=== PATIENT | male | born 1950 | race Caucasian/White ===

== ENCOUNTER 2018-11-27 11:38 | Observation (INO) ==
[2018-11-27] MEDS ORDERED: Isovue-370 500 ML BOTTLE IVP ONE (11:44)
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
[2018-11-27 12:20] LABS: Hematocrit 38.5 % (37.5-50.1); Hemoglobin 12.3 g/dL (12.9-16.9); Mean Corpuscular HGB Conc 31.9 g/dL (31.6-35.5); Mean Corpuscular Hemoglobin 27.5 pg (28.0-33.3); Mean Corpuscular Volume 86.1 fL (83.0-100.0); Mean Platelet Volume 10.4 fL (9.4-12.4); Platelet Count 250 K/mcL (140-400); Red Blood Count 4.47 M/mcL (4.19-5.50); Red Cell Distribution Width 15.4 % (11.5-14.5)
[2018-11-27 12:25] LABS: INR 1.2; Prothrombin Time 13.7 Seconds (9.4-12.1)
[2018-11-27 12:28] LABS: Activated Partial Thrombo Time 33.3 Seconds (26.0-36.0)
[2018-11-27 12:42] LABS: BUN/Creatinine Ratio 11 (6-26); Blood Urea Nitrogen 9 mg/dL (8-23); Calcium 9.3 mg/dL (8.6-10.3); Carbon Dioxide 28 mEq/L (23-29); Chloride 101 mEq/L (98-107); Glucose 216 mg/dL (70-105); Osmolality,Calculated 281 (280-300); Potassium 4.1 mEq/L (3.5-5.1); Sodium 133 mEq/L (136-145); eGFR For Non-African Americans > 60 (> 60)
[2018-11-27 12:43] LABS: Troponin I < 0.03 ng/mL (< 0.04)
[2018-11-27] MEDS ORDERED: Aspirin 81 MG TAB.CHEW PO ONE (13:15)
--- NOTE | 2018-11-27 15:46 | Internal Med History&Physical ---
Date of Encounter: 11/27/18 Time of Encounter: 15:22 Internal Medicine - H&P: HPI Chief complaint: left facial droop Admitted From: Long-term Nursing Facility Plans for Post Hospital Care: Transfer Half-Way Facility History of present illness: Mr. Chan is a 68 year old male who has history of right MCA stroke, diabetes, BPH, smoker, and dementia with behavioral issues, lives in the [place] extended the facility, was brought to emergency room for left facial droop. Patient had right MCA stroke with left-sided spasmatic hemiplegia, this morning patient was in the store in his wheelchair, he said he turned around too fast, and hit his right wrist, and his head. He was found significant left facial droop. He was sent to emergency room, stroke alert was called, he had a negative CT scan,Tele stroke consult was called. Patient is not a candidate for TPA. he is going to be admitted for TIA workup. when I saw the patient, he is alert and oriented 3, he admits he smokes 18 cigarettes daily. He denies alcohol use, denies LOC, no vision changes. His daughter is on the bedside. He has some behavioral issues. Patient denies chest pain, shortness of breath, denies nausea vomiting diarrhea he denies painful frequency urination. I called [facility] Medication list is obtained Lyrica 75 mg twice a day Metformin 500 mg twice a day Potassium chloride 10 mEq once daily Docusate 2 tablets twice a day Insulin she 10 units once daily Quetapine 25 mg twice daily Omeprazole 20 mg daily Baby aspirin 81 mg daily Percocets 5 325 3 times a day as needed Balofen 10 mg 3 times a day carbamzepine 200 mg BID Trazodone 50 mg at sleep time, Flomax 0.4 mg at sleep time, LIpitor 40 mg at sleep time Past Med Surg Social Fam HX - Past Medical History Medical history: CVA, diabetes Additional medical history: cva-2014 with left arm deficiets and unable to walk Psychiatric history: other - Past Surgical History Surgical History: no surgical history, herniorrhaphy - Social History Smoking Status: Current every day smoker Smokeless Tobacco Status: No Alcohol use: unknown, heavy Drug use: none Current living situation: [facility] Activity Level: Bed bound - Family History Father Hx Family Cancer: Yes (leukemia) - Additional Family History Additional family history: denies CAD, DM, positive for leukemia Internal Medicine - H&P: Meds cephALEXin [Cephalexin] 500 mg PO QID #40 tablet 07/21/16 [Rx] Baclofen [Lioresal] 10 mg PO TID 11/27/18 [History] Pregabalin [Lyrica] 75 mg PO BID 11/27/18 [History] Quetiapine Fumarate [SEROquel] 25 mg PO BID 11/27/18 [History] carBAMazepine [CarBAMazepine] 200 mg PO BID 11/27/18 [History] Allergy/AdvReac Type Severity Reaction Status Date / Time No Known Allergies Allergy Verified 07/21/16 14:10 All Systems PM: A 10-system review of systems was performed and is negative for pertinent findings except as documented above in the HPI. - Constitutional Vitals: Temp Pulse Resp BP Pulse Ox 99.0 F 69 16 131/56 97 11/27/18 11:43 11/27/18 13:54 11/27/18 13:54 11/27/18 13:54 11/27/18 13:54 General appearance: Present: A&O X 3, obese Exam: CONSTITUTIONAL: Patient appears as an age appropriate male well developed, in no acute distress. EYES Clear sclerae, bilateral pupils are equal, reactive to light and accommodation. Extraocular movements are intact RESPIRATORY: No accessory muscle use, bilateral clear to auscultation, no wheezing, no crackles/rales. CARDIOVASCULAR: Regular heart rate, normal S1 and S2, no murmurs GASTROINTESTINAL: bowel sounds present, soft, no tenderness. No hepatosplenomegaly. No bilateral CVA tenderness MUSCULOSKELETAL: right sided Joints in normal range of motion, no clubbing, no edema, no cyanosis. left side hemiplegia LYMPHATIC no lymphadenopathy in neck, groin and axilla bilaterally, no thyromegaly. NEUROLOGIC: CN II to XII are grossly intact, no focal neurological deficit. left hemiplegia PSYCHIATRIC: Oriented x3, with good insight, mood is euthymic. No hallucinations or delusions. SKIN: Skin warm and dry, no rashes, no open wound. Internal Med - H&P Results - Labs CBC & Chem 7: 11/27/18 12:05 11/27/18 12:05 Labs: Short CBC 11/27/18 Range/Units 12:05 WBC 7.0 (4.3-11.1) K/mcL Hgb 12.3 L (12.9-16.9) g/dL Hct 38.5 (37.5-50.1) % Plt Count 250 (140-400) K/mcL BMP 11/27/18 12:05 Sodium 133 L Potassium 4.1 Chloride 101 Carbon Dioxide 28 BUN 9 Creatinine 0.81 Glucose 216 H Calcium 9.3 Cardiac Enzymes 11/27/18 Range/Units 12:05 Troponin I < 0.03 (< 0.04) ng/mL - Impressions ITS Impressions Head CT 11/27/18 11:44 IMPRESSION: 1. No acute intracranial abnormality. 2. Chronic infarcts involving the right anterior and middle cerebral artery distributions. 3. Cerebral parenchymal volume loss with chronic microvascular white matter ischemic disease. 4. Large cystic mass along the posterior midline of the neck, incompletely imaged, however, relatively stable compared to the 10/05/2017 exam. D/ : / 11/27/2018 12:19:03 Christian Del Toro [place] [facility] [place] Provider: Christian Del Toro MD Wrist X-Ray 11/27/18 12:12 IMPRESSION: 1. Technically limited secondary to patient immobility. 2. No acute osseous abnormality. D/ /27/2018 12:58:31 Cathy Borja MD / chelita Interpreting Provider: Cathy Borja MD - Assessment and plan (1) Facial droop Current Visit: Yes Status: Acute Assessment and plan: Transient left facial droop and possible TIA we will do TIA workup obtain MRI of brain echocardiogram carotid duplex Consult a neurologist Check a lipid A1c TSH, conuslt PT, OT and SP Continue baby aspirin and the statins discussed with neurology, he recommended plavix and ASA, MRI brain (2) Hx of ischemic right MCA stroke Current Visit: Yes Status: Acute Assessment and plan: With left-sided spasmatic hemiplegia Continue aspirin and statins (3) Tobacco dependence Current Visit: Yes Status: Acute Assessment and plan: Smokeless 16 cigarettes daily smoking cessation discussed, patient declined nicotine patch (4) Dementia with behavioral disturbance Current Visit: Yes Status: Acute Qualifiers: Dementia type: associated with alcoholism Qualified Code(s): F10.27 - Alcohol dependence with alcohol-induced persisting dementia (5) Depression Current Visit: Yes Status: Chronic Qualifiers: Depression Type: major depressive disorder Major depression recurrence: unspecified whether recurrent Active/Remission status: in remission of unspecified degree Qualified Code(s): F32.5 - Major depressive disorder, single episode, in full remission (6) DM type 2 (diabetes mellitus, type 2) Current Visit: Yes Status: Chronic Assessment and plan: We will add insulin sliding scale hold metformin Qualifiers: 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 insulin use: with alf use Diabetes mellitus complication status: with diabetic arthropathy Diabetes mellitus complication detail: with other arthropathy Qualified Code(s): E11.618 - Type 2 diabetes mellitus with other diabetic arthropathy; 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
[2018-11-27] MEDS ORDERED: Naloxone 0.4 MG/ML INJ IVP PRN (16:09)
[2018-11-27] MEDS ORDERED: *HR* Dextrose 50 % in Water (Syg) 50 ML SYRINGE IVP PRN (16:11)
[2018-11-27] MEDS ORDERED: Dextrose Gel 15 GM/37.5 ML TUBE PO PRN ×2 (16:11)
[2018-11-27] MEDS ORDERED: D5% in Water 1,000 ML IVC PRN (16:11)
[2018-11-27] MEDS ORDERED: *HR* OxyCODONE/APAP 5/325 TABLET PO PRN (16:13)
[2018-11-27] MEDS: Insulin LISPRO 300 UNITS/3 ML VIAL SQ SCH (18:22)
[2018-11-27] MEDS: Aspirin Enteric Coated 81 MG Tablet PO SCH (18:22)
[2018-11-27] MEDS: Baclofen 10 MG TABLET PO SCH ×2 (18:22→20:47)
[2018-11-27] MEDS ORDERED: Nicotine 2 MG GUM BC PRN (19:55)
[2018-11-27] MEDS: Pregabalin 75 MG CAPSULE PO SCH (20:45)
[2018-11-27] MEDS: CarBAMazepine 100 MG TABLET PO SCH (20:45)
[2018-11-27] MEDS ORDERED: Insulin LISPRO 300 UNITS/3 ML VIAL SQ SCH (21:00)
[2018-11-27] MEDS ORDERED: traZODone 50 MG TABLET PO SCH (21:00)
[2018-11-28] MEDS: Insulin LISPRO 300 UNITS/3 ML VIAL SQ SCH ×3 (08:53→16:53)
[2018-11-28] MEDS: Aspirin Enteric Coated 81 MG Tablet PO SCH (08:55)
[2018-11-28] MEDS: Pregabalin 75 MG CAPSULE PO SCH (08:55)
[2018-11-28] MEDS: CarBAMazepine 100 MG TABLET PO SCH (08:55)
[2018-11-28] MEDS: Baclofen 10 MG TABLET PO SCH ×2 (08:56→16:53)
[2018-11-28 12:02] VITALS: BP 144/75
--- NOTE | 2018-11-28 14:34 | Discharge Summary ---
Orders not resulted at time of discharge: Pending orders 11/28/18 04:00 Comprehensive Metabolic Panel AM 0400 Hgb A1C AM 0400 Lipid Troup AM 0400 Prothrombin Time INR [COAG] AM 0400 Troponin I AM 0400 Urinalysis reflex Microscopic [URIN] AM 0400 Date of Encounter: 11/28/18 Time of Encounter: 14:31 - Discharge Diagnosis (1) Facial droop Priority: Primary Status: Resolved (2) Hx of ischemic right MCA stroke Priority: Secondary Status: Chronic (3) Tobacco dependence Priority: Secondary Status: Chronic (4) Dementia with behavioral disturbance Priority: Secondary Status: Chronic Qualifiers: Dementia type: associated with alcoholism Qualified Code(s): F10.27 - Alcohol dependence with alcohol-induced persisting dementia (5) Depression Priority: Secondary Status: Chronic Qualifiers: Depression Type: major depressive disorder Major depression recurrence: unspecified whether recurrent Active/Remission status: in remission of unspecified degree Qualified Code(s): F32.5 - Major depressive disorder, single episode, in full remission (6) DM type 2 (diabetes mellitus, type 2) Priority: Secondary Status: Chronic Qualifiers: Diabetes mellitus shelter insulin use: with long term care pharmacist use Diabetes mellitus complication status: with diabetic arthropathy Diabetes mellitus complication detail: with other arthropathy Qualified Code(s): E11.618 - Type 2 diabetes mellitus with other diabetic arthropathy; 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 Chan is a 68 year old male who has history of right MCA stroke, diabetes, BPH, smoker, and dementia with behavioral issues, lives in the [place] extended the facility, was brought to emergency room for left facial droop. Patient had right MCA stroke with left-sided spasmatic hemiplegia, this morning patient was in the store in his wheelchair, he said he turned around too fast, and hit his right wrist, and his head. He was found significant left facial droop. He was sent to emergency room, stroke alert was called, he had a negative CT scan,Tele stroke consult was called. Patient is not a candidate for TPA. he is going to be admitted for TIA workup. when I saw the patient, he is alert and oriented 3, he admits he smokes 18 cigarettes daily. He denies alcohol use, denies LOC, no vision changes. His daughter is on the bedside. He has some behavioral issues. Patient denies chest pain, shortness of breath, denies nausea vomiting diarrhea he denies painful frequency urination. I called [facility] Medication list is obtained Lyrica 75 mg twice a day Metformin 500 mg twice a day Potassium chloride 10 mEq once daily Docusate 2 tablets twice a day Insulin 10 units once daily Quetapine 25 mg twice daily Omeprazole 20 mg daily Baby aspirin 81 mg daily Percocets 5 325 3 times a day as needed Balofen 10 mg 3 times a day carbamzepine 200 mg BID Trazodone 50 mg at sleep time, Flomax 0.4 mg at sleep time, LIpitor 40 mg at sleep time Patient has been doing well, left facial droop resolved. He has been at baseline after admission. MRI brain Multifocal old infarct throughout the right hemisphere with surrounding gliotic change. There is dark T2, dark gradient echo, and increased diffusion signal in the right middle cerebral artery parenchyma along the medial aspect of the encephalomalacia in the frontal parietal region. This is likely due to hemosiderin deposition and related signal changes. A small amount of recent ischemia within this spared parenchyma would be difficult to exclude. No acute infarct in the left hemisphere Initially neurology was consulted, discussed with Dr. Jasso He recommended continuing ASA. plavix has no benefit for old infarct, follow up with Dr Jasso in 1 week. Discharge discussed with: patient, family Time spent discussing smoking cessation with patient: 3 to 10 minutes - Time Spent with Patient Total time spent providing and/or coordinating discharge services: Less than 30 minutes - Discharge Medications Prescriptions: Atorvastatin [Lipitor] 40 mg PO HS #30 tablet Home Medications: Baclofen [Lioresal] 10 mg PO TID 11/27/18 [History] Pregabalin [Lyrica] 75 mg PO BID 11/27/18 [History] Quetiapine Fumarate [Seroquel] 25 mg PO BID 11/27/18 [History] carBAMazepine [CarBAMazepine] 200 mg PO BID 11/27/18 [History] Aspirin Enteric Coated [Aspirin EC] 81 mg PO DAILY tablet. 11/28/18 [Rx] Atorvastatin [Lipitor] 40 mg PO HS #30 tablet 11/28/18 [Rx] Omeprazole [PriLOSEC] 20 mg PO DAILY@0630 capsule. 11/28/18 [Rx] traZODone [TraZODone] 50 mg PO HS tablet 11/28/18 [Rx] Allergies/Adverse Reactions: Allergy/AdvReac Type Severity Reaction Status Date / Time No Known Allergies Allergy Verified 07/21/16 14:10 Date of admission: 11/27/18 13:42 [facility] physician[facility] Consults: 11/27/18 16:00 Consult to Neurology [CONS] Routine Consulting Provider: Neurology [facility] Reason for Consult: left facial droop Call Completed: Yes Consult to Occupational Therapy [CONS] Routine Comment: Evaluate, develop and implement POC Reason for Consult: stroke Does patient have active BEDREST order?: No Is patient medically & hemodynamically stable?: Yes Patient assessed for mobility or mobilized this visit?: Yes Consult to Physical Therapy [CONS] Routine Comment: Evaluate, develop and implement POC Reason for Consult: stroke Does patient have active BEDREST order?: No Is patient medically & hemodynamically stable?: Yes Patient assessed for mobility or mobilized this visit?: Yes Consult to Poultry Field Service Technician [CONS] Routine Reason for SW Consult: stroke Consult to Speech Therapy [CONS] Routine Comment: Evaluate, develop and implement POC Reason for Consult: TIA Call Completed: No - Constitutional Vitals: Temp Pulse Resp BP Pulse Ox 98.5 F 60 16 144/75 93 11/28/18 12:00 11/28/18 12:00 11/28/18 12:00 11/28/18 12:00 11/28/18 12:00 General appearance: Present: A&O X 3, obese Exam: CONSTITUTIONAL: Patient appears as an age appropriate male well developed, in no acute distress. EYES Clear sclerae, bilateral pupils are equal, reactive to light and accommodation. Extraocular movements are intact RESPIRATORY: No accessory muscle use, bilateral clear to auscultation, no wheezing, no crackles/rales. CARDIOVASCULAR: Regular heart rate, normal S1 and S2, no murmurs GASTROINTESTINAL: bowel sounds present, soft, no tenderness. No hepatosplenomegaly. No bilateral CVA tenderness MUSCULOSKELETAL: right sided Joints in normal range of motion, no clubbing, no edema, no cyanosis. left side hemiplegia LYMPHATIC no lymphadenopathy in neck, groin and axilla bilaterally, no thyromegaly. NEUROLOGIC: CN II to XII are grossly intact, no focal neurological deficit. left hemiplegia PSYCHIATRIC: Oriented x3, with good insight, mood is euthymic. No hallucinations or delusions. SKIN: Skin warm and dry, no rashes, no open wound. - Patient Status Disposition: Transfer [facility] Condition: Good Functional capacity at discharge: bed bound Overall status at discharge: patient is back to baseline - Discharge Instructions [facility] Up With: [facility]Primary Care Provider[facility] - Tahira Jasso MD [Partnered Physician] - 12/01/18 (in 1 week for TIA) - Diet and Activity Diet: diabetic diet, low fat, low cholesterol
--- NOTE | 2018-11-28 14:49 | Physician Discharge Referral ---
ExtendedCare Referral Info Transfer To: [facility] Provider in Charge after Transfer: PCP Institutional Level of Care: Intermediate - Diagnosis (1) Facial droop Status: Resolved (2) Hx of ischemic right MCA stroke Status: Chronic (3) Tobacco dependence Status: Chronic (4) Dementia with behavioral disturbance Status: Chronic (5) Depression Status: Chronic (6) DM type 2 (diabetes mellitus, type 2) Status: Chronic (7) BPH (benign prostatic hyperplasia) Status: Chronic (8) Obesity (BMI 30.0-34.9) Status: Chronic - Transfer Medications Prescriptions: Atorvastatin [Lipitor] 40 mg PO HS #30 tablet Home Medications: Baclofen [Lioresal] 10 mg PO TID 11/27/18 [History] Pregabalin [Lyrica] 75 mg PO BID 11/27/18 [History] Quetiapine Fumarate [Seroquel] 25 mg PO BID 11/27/18 [History] carBAMazepine [CarBAMazepine] 200 mg PO BID 11/27/18 [History] Aspirin Enteric Coated [Aspirin EC] 81 mg PO DAILY tablet. 11/28/18 [Rx] Atorvastatin [Lipitor] 40 mg PO HS #30 tablet 11/28/18 [Rx] Omeprazole [PriLOSEC] 20 mg PO DAILY@0630 capsule. 11/28/18 [Rx] traZODone [TraZODone] 50 mg PO HS tablet 11/28/18 [Rx] Allergies/Adverse Reactions: Allergy/AdvReac Type Severity Reaction Status Date / Time No Known Allergies Allergy Verified 07/21/16 14:10 - Respiratory Orders Smoking Cessation: Smoking cessation has been advised. For more information, call the [place] Tobacco Quit Line at 3-734-YXHX-NOW. CERTIFICATION: I certify that the transfer of the above named patient to an Extended Care Facility is necessary for the continuing treatment of the diagnosis listed. The above information is true and accurate reflection of patient's current condition. Confidential - Redisclosure prohibited without a patient's written consent.
[2018-11-28 18:29] LABS: INR 1.3; Prothrombin Time 14.7 Seconds (9.4-12.1)
[2018-11-28 18:46] LABS: Alanine Aminotransferase 11 Units/L (7-52); Albumin 3.5 g/dL (3.5-5.7); Albumin/Globulin Ratio 1.1 (1.1-2.2); Alkaline Phosphatase 93 Units/L (34-104); Aspartate Amino Transferase 14 Units/L (13-39); BUN/Creatinine Ratio 10 (6-26); Bilirubin,Total 0.2 mg/dL (0.3-1.0); Blood Urea Nitrogen 11 mg/dL (8-23); Carbon Dioxide 29 mEq/L (23-29); Chloride 99 mEq/L (98-107); Chol/HDL Ratio 5.9 (0-4.9); Cholesterol 142 mg/dL (< 200); Globulin 3.3 g/dL (2.4-3.5); Glucose 269 mg/dL (70-105); HDL Cholesterol 24 mg/dL (40-59); LDL Cholesterol,Calculated 56 mg/dL (0-99); Osmolality,Calculated 291 (280-300); Potassium 3.7 mEq/L (3.5-5.1); Sodium 136 mEq/L (136-145); Total Protein 6.8 g/dL (6.4-8.9); Triglycerides 311 mg/dL (< 150); Troponin I < 0.03 ng/mL (< 0.04); eGFR For Non-African Americans > 60 (> 60)
[2018-11-28 18:59] LABS: Estimated Average Glucose 223 mg/dl; Hemoglobin A1C 9.4 %
--- NOTE | 2018-11-30 22:24 | Electrocardiograph Report ---
[address] [place], [place] [address] Test Date: 2018-11-27 Pat Name: Augustine Chan Department: [id number] Room: 3B21 Gender: M Communications Manager: : [id number] Requested By: Cooper Rizo Order Number: [id number] Reading MD: Haritha Carter Measurements Intervals [place] Rate: 76 P: 73 [place]: 147 QRS: 57 QRSD: 85 T: 43 QT: 378 QTc: 428 Interpretive Statements Technically poor tracing - please repeat ECG Sinus rhythm Electronically Signed On 11-30-2018 22:23:14 EST by Haritha Carter
== END 2018-11-28 19:29 ==
LOC: 3BNU 11:38 → EMEROOARM 11:38 → 3BNU 14:47
PROVIDERS: ADMIT Student in an Organized Health Care Education/Training Program; ATTEND Student in an Organized Health Care Education/Training Program